=== PATIENT | male | born 1970 | race Caucasian/White ===

== ENCOUNTER → 2019-05-19 | Outpatient (CLI) | payer BC, SELFPAY ==
[2019-05-19 12:34] LABS: Absolute Lymphocyte Count 1.86 X10^3/uL (0.83-4.51); Absolute Neutrophil Count 3.5 X10^3/uL (2.0-7.7); Basophil# 0.05 X10^3/uL; Basophil% 0.8 % (0-1); Eosinophil# 0.11 X10^3/uL; Eosinophils% 1.8 % (0-5); Hematocrit 44.1 % (40-54); Hemoglobin 14.5 g/dL (13.0-16.5); Lymphocyte # 1.86 X10^3/ul (4.0); Lymphocyte % 29.9 % (19-41); Mean Corp Hgb Conc 32.9 g/dL (32-36); Mean Corpuscular Volume 94.2 fL (80-94); Mean Platelet Vol. 10.3 fl (6.2-12.0); Monocyte# 0.64 X10^3/uL; Monocyte% 10.3 % (0-10); NRBC Flagged by Analyzer 0 % (0-5); Neutrophil # 3.54 X10^3/uL (2.7-7.7); Neutrophil % 56.9 % (47-70); Platelet Count 301 K/mm3 (150-450); RBC Distribution Width CV 14.1 % (11.6-14.6); RBC Distribution Width SD 49.1 fl (35.1-43.9); Red Blood Count 4.68 M/mm3 (4.6-6.2); White Blood Count 6.2 K/mm3 (4.4-11.0)
[2019-05-19 12:36] LABS: Erythrocyte Sedimentation Rate 5 mm/hr (0-20)
[2019-05-19 13:01] LABS: AST(SGOT) 24 U/L (15-37); Alanine Aminotransfer ALT/SGPT 47 U/L (16-61); Alkaline Phosphatase 93 U/L (45-117); Anion Gap 4 (5-15); BUN 24 mg/dL (7-18); BUN/Creat Ratio 25.7 RATIO (10-20); CRP 3.39 mg/L (0.0-3.0); Calcium,Total 9.1 mg/dL (8.5-10.1); Chloride 107 mmol/L (98-107); Cholesterol 253 mg/dL (200); Creatinine, Serum 0.93 mg/dL (0.70-1.30); EST Glomerular Filtration Rate 91 mL/min (>60); Est Glom Filt Rate - Afr Amer 110 mL/min (>60); Globulin 4.2 g/dL (2.2-4.2); Glucose 93 mg/dL (74-106); High Density Lipoprotein 39 mg/dL; Potassium 4.2 mmol/L (3.5-5.1); Protein, Total 8.2 g/dL (6.4-8.2); Rheumatoid Factor < 10.0 IU/mL (<15); Sodium Level 138 mmol/L (136-145); Thyroid Stim Hormone (TSH) 2.99 uIU/mL (0.358-3.74); Triglycerides 196 mg/dL; Very Low Density Lipoprotein 39 mg/dL (5-40)
[2019-05-19 13:02] LABS: Vitamin D,25 Hydroxy 14.6 ng/mL (29.95-100.01)
[2019-05-20 14:01] LABS: ANTINUCLEAR ANTIBODIES DIRECT Negative (Negative)
== END | disposition home or self-care (01) ==
LOC: BFHLAB 09:37
PROVIDERS: PCP Family Medicine; Visit Provider Family Medicine
DX: M06.4 Inflammatory polyarthropathy (principal); R53.83 Other fatigue; Z13.220 Encounter for screening for lipoid disorders; Z82.49 Family history of ischemic heart disease and other diseases of the circulatory system
CPT/HCPCS: 36415; 80053; 80061; 82306; 84443; 85025; 85652; 86038; 86140; 86225; 86235; 86431

== ENCOUNTER → 2023-01-10 | Outpatient (CLI) | payer SELFPAY ==
[2023-01-10 12:14] LABS: Absolute Lymphocyte Count 2.27 X10^3/uL (0.83-4.51); Absolute Neutrophil Count 2.8 X10^3/uL (2.0-7.7); Basophil# 0.04 X10^3/uL; Basophil% 0.7 % (0-1); Eosinophil# 0.09 X10^3/uL; Eosinophils% 1.6 % (0-5); Hematocrit 44.6 % (40-54); Hemoglobin 14.8 g/dL (13.0-16.5); Lymphocyte # 2.27 X10^3/ul (0.83-4.51); Lymphocyte % 40.5 % (19-41); Mean Corp Hgb Conc 33.2 g/dL (32-36); Mean Corpuscular Volume 96.3 fL (80-94); Monocyte# 0.43 X10^3/uL; Monocyte% 7.7 % (0-10); NRBC Flagged by Analyzer 0 % (0-5); Neutrophil # 2.76 X10^3/uL (2.7-7.7); Neutrophil % 49.3 % (47-70); Platelet Count 258 K/mm3 (150-450); RBC Distribution Width CV 13.9 % (11.6-14.6); RBC Distribution Width SD 49.1 fl (35.1-43.9); Red Blood Count 4.63 M/mm3 (4.6-6.2); White Blood Count 5.6 K/mm3 (4.4-11.0)
[2023-01-10 12:39] LABS: Vitamin D,25 Hydroxy 28.6 ng/mL
[2023-01-10 12:53] LABS: ALB/GLOB Ratio 0.9 RATIO (0.9-2.4); AST(SGOT) 22 U/L (15-37); Alanine Aminotransfer ALT/SGPT 43 U/L (16-61); Albumin, Serum 3.7 g/dL (3.2-5.0); Alkaline Phosphatase 94 U/L (45-117); Anion Gap 6 (5-15); BUN 21 mg/dL (7-18); BUN/Creat Ratio 22.4 RATIO (10-20); Calcium,Total 8.8 mg/dL (8.5-10.1); Chloride 108 mmol/L (98-107); Cholesterol 248 mg/dL (200); Creatinine, Serum 0.94 mg/dL (0.70-1.30); EST Glomerular Filtration Rate 89 mL/min (>60); Est Glom Filt Rate - Afr Amer 108 mL/min (>60); Globulin 3.9 g/dL (2.2-4.2); Glucose 103 mg/dL (74-106); High Density Lipoprotein 38 mg/dL; Potassium 3.9 mmol/L (3.5-5.1); Protein, Total 7.6 g/dL (6.4-8.2); Sodium Level 139 mmol/L (136-145); Triglycerides 203 mg/dL; Very Low Density Lipoprotein 41 mg/dL (5-40)
== END | disposition home or self-care (01) ==
LOC: BFHLAB 08:13
PROVIDERS: PCP Nurse Practitioner Family; Referring Provider Nurse Practitioner Family; Visit Provider Nurse Practitioner Family
DX: Z00.01 Encounter for general adult medical examination with abnormal findings (principal); M06.4 Inflammatory polyarthropathy; E55.9 Vitamin D deficiency, unspecified
CPT/HCPCS: 36415; 80053; 80061; 82306; 84153; 85025; G0103

== ENCOUNTER 2024-12-04 08:28 | Day surgery (SDC) | payer SELFPAY ==
[2024-12-04] VITALS (8 sets, daily range): BP systolic 98–118; BP diastolic 73–91; PULSE 74–88; RESP 16–20; TEMP 35.8–36.9; O2SAT 98–100; BMI 25.1
[2024-12-04] MEDS: Lactated Ringers 1,000 ML 15 ML IV (08:53)
--- OUTSIDE RECORDS SUMMARY | 2024-12-04 09:03 | XMS RPT_ITS | CCD ---
Author Organization [facility] Care Team Providers Care Information Clerk Name Role Phone Tony Mayorga Attending Unavailable Malena Yu Referring Unavailable Malena Yu Primary Care Unavailable Malena Yu Primary Care Unavailable Rogelio Boothe Attending Unavailable Malena Yu Referring Unavailable Medications Current Medications Medication Drug Class(es) Dates Sig (Normalized) Sig (Original) azithromycin 250 mg oral tablet (1 source) Macrolide Antimicrobial Start: 04-20-2021 Azithromycin Active 250 MG PO daily April 20, 2021 1:00am 2 tablets today, then 1 tablet daily on days 2 through 11 predniSONE 10 mg oral tablet (1 source) Start: 04-20-2021 take 10 mg by mouth once daily Prednisone Active 10 MG PO DAILY April 20, 2021 1:00am Problems Problem Classification Problem Date Documented Da te Episodic/Chronic Other upper respiratory disease (1 source) Respiratory tract congestion; Translations: [Nasal congestion] 04-20-2021 Episodic Other upper respiratory infections (1 source) Acute maxillary sinusitis; Translations: [Acute maxillary sinusitis, unspecified] 04-20-2021 Episodic Unclassified (1 source) Cough, unspecified; Translations: [Cough, unspecified] Onset: 05-21-2024 Results Test Name Value Interpretation Reference Range Facility Urgent Care Visit Reporton 0 05-21-2024 Urgent Care Visit Report [facility] [address], [address] [place] [address] OFFICE VISIT Date of Service: 05/21/24 MR#: [id number] Acct: [id number] Name: DENA PIZARRO Rep #: [id number] : 1970 Provider: JONATHAN Alcazar Age/Sex: 54/M Location: [facility] Status: Signed Intake Vital Signs 04/20/21 14:11 05/21/24 11:57 Height 5 ft 8 in 5 ft 8 in Weight: 170 lb BMI 25.8 BP 124/62 H Blood Pressure Location Lt brachial Position Sitting Respiration 16 Pulse 86 Pulse Source NIBP Temp 98.9 F Temp Source Oral Pulse Oximetry (%) 97 Oxygen Delivery Method room air Intake Visit Reasons: Cough Chief Complaint: cough, [place], BA, ST, congest [employer] Trim Required: No Is patient in pain?: No Allergies No Known Allergies Allergy (Verified 05/21/24 11:58) Medications ???Medication ???Instructions ???Recorded ???Confirmed ???Type oseltamivir 75 mg capsule (Tamiflu) 75 mg PO Q12H 5 days #10 caps 0 05/21/24 05/21/24 Rx Have you fallen in the past year?: No Nurse's Note: cough, ST[place]FORD, BA, ST, congest x 48 hours. denies fever PFSH Medical History (Updated 05/21/24 @ 13:47 by Tony CASTILLO, PA) Acute maxillary sinusitis, unspecified HPI HPI Chief Complaint: cough, [place], BA, ST, congest Details: DENA PIZARRO, is a 54 M who presents to the office today for complaint of cough, headache, body aches and sore throat as well as congestion for the past 48 hours. Patient denies hemoptysis, shortness of breath or difficulty breathing. No loss of taste or smell. No nausea, vomiting or diarrhea. No other associated symptoms or alleviating/aggrava ting factors. ROS Const Constitutional: No other (as above) Exam Const General: cooperative and well developed HENWI Head: normal to inspection and atraumatic Ears: hearing grossly normal bilaterally Nose: nasal discharge clear Face and sinus: normal facial exam Mouth: oral mucosae normal Throat: abnormal tonsil bilaterally hypertrophy 1+ Resp Effort Inspection: normal respiratory effort and no audible wheezes Auscultation: Bilateral: Clear to Auscultation Cardio Palpation: normal PMI Rate: regular rate Rhythm: regular rhythm Neuro General: patient alert and CN's II-XI intact bilaterally Psych Appearance: grossly normal Mental Status: mental status grossly normal Results POC FLU A B Office Flu A B Pos FLU A Neg FLU B Last Edit by Velia Hare on 05/21/24 12:08 Coding Level of Care Code Off vis,est,level 3 Diagnoses Influenza due to influenza virus, type A, human J10.1 Assessment and Plan Assessment and Plan (1) Influenza due to influenza virus, type A, human: Status: Acute Orders: Orders POC FLU A B Today R05.9 - Cough, unspecified Medications: New oseltamivir (Tamiflu) 75 mg PO Q12H 10 caps 0RF 5 days Plan Tamiflu as prescribed today. Encouraged to get plenty of rest, drink lots of clear liquids, and use Tylenol or Ibuprofen (unless contraindicated) for fever and comfort. Patient also educated on other symptomatic management techniques. To be seen in 7-10 days if no improvement; sooner if worsening of symptoms. Patient advised of potential red flags and when appropriate to report to the ED. Patient verbalized understanding and agreement with all the above. Clinical Quality Measures Falls Risk Screening/Assistive Devices Have you fallen in the past year?: No 05/21/24 1348 Date Tony Liu Signature: Date (if applicable) CC: Normal [facility] Absolute lymphocyte countOrd ered By: Malena Yu on 01-10-2023 Lymphocytes Auto (Unsp spec) [#/Vol] 2.27 10*3/uL 0.83-4.51 [facility] Basophil percentageOrdered B y: Malena Yu on 01-10-2023 Basophils/100 WBC (Bld) 0.7 % 0-1 [facility] Bilirubin [Mass/Vol] 0.30 mg/dL 0.20-1.00 [facility] Comment on above: For patients on eltr ombopag therapy, use of Dimension Clay TBIL is not recommended. Chloride [Moles/Vol] 108 mmol/L 98-107 [facility] Cholesterol [Mass/Vol] 248 mg/dL <[address] [facility] Comment on above: <200 mg/dL Desirable 200-240 mg/dL Borderline >240 mg/dL High Risk Eosinophils/100 WBC (Bld) 1.6 % 0-5 [facility] Glucose [Mass/Vol] 103 mg/dL 74-106 [facility] Comment on above: Fasting Glucose resu lt from 100 to 125 mg/dL suggests IMPAIRED HOMEOSTASIS per A.D.A. criteria. Neutrophils (Bld) [#/Vol] 2.8 10*3/uL 2.0-7.7 [facility] Neutrophils/100 WBC (Bld) 49.3 % 47-70 [facility] Potassium [Moles/Vol] 3.9 mmol/L 3.5-5.1 [facility] Protein [Mass/Vol] 7.6 g/dL 6.4-8.2 [facility] Sodium [Moles/Vol] 139 mmol/L 136-145 [facility] Triglyceride [Mass/Vol] 203 mg/dL <199 [facility] Comment on above: The drugs N-Acetylcy steine and Metamizole may falsely depress this assay.Serum Triglycerides Reference Interval Normal <150 mg/dL Borderline high 150 - 199 mg/dL High 200 - 499 mg/dL Very High > or = 500 mg/dL WBC (Bld) [#/Vol] 5.6 10*3/uL 4.4-11.0 [facility] Blood erythrocytes count (nu mber/volume)Ordered By: Malena Yu on 01-10-2023 RBC (Bld) [#/Vol] 4.63 10*6/uL 4.6-6.2 [facility] Blood hemoglobin measurement (mass/volume)Ordered By: Malena Yu on 01-10-2023 Hemoglobin (Bld) [Mass/Vol] 14.8 g/dL 13.0-16.5 [facility] Blood lymphocytes/100 leukoc ytesOrdered By: Malena Yu on 01-10-2023 Lymphocytes/100 WBC (Bld) 40.5 % 19-41 [facility] Blood monocytes/100 leukocyt esOrdered By: Malena Yu on 01-10-2023 Monocytes/100 WBC (Bld) 7.7 % 0-10 [facility] Blood platelet mean volumeOr dered By: Malena Yu on 01-10-2023 Platelet mean volume (Bld) [Entitic vol] 11.0 fL 6.2-12.0 [facility] Determination of erythrocyte mean corpuscular volume (MCV)Ordered By: Malena Yu on 01-10-2023 MCV (RBC) [Entitic vol] 96.3 fL 80-94 [facility] Hematocrit Auto (Bld) [Volum e fraction]Ordered By: Malenakatt Yu on 01-10-2023 Hematocrit (Bld) [Volume fraction] 44.6 % 40-54 [facility] Laboratory - Chemistry and C hemistry - challengeOrdered By: [place] Gigi on 01-10-2023 ALP [Catalytic activity/Vol] 94 U/L 45-117 [facility] ALT [Catalytic activity/Vol] 43 U/L 16-61 [facility] CO2 [Moles/Vol] 25.0 mmol/L 21.0-32.0 [facility] Globulin (S) [Mass/Vol] 3.9 g/dL 2.2-4.2 [facility] Urea nitrogen/Creatinine [Mass ratio] 22.4 mg/mg 10-20 [facility] - Hematology and Cell countsOrdered By: Malenakatt Yu on 01-10-2023 Erythrocyte distribution width (RBC) [Entitic vol] 49.1 fL 35.1-43.9 [facility] Erythrocyte distribution width (RBC) [Ratio] 13.9 % 11.6-14.6 [facility] Immature granulocytes/100 WBC (Bld) 0.200 % 0.0-0.9 [facility] Comment on above: IG% - Immature Granu locytes (promyelocytes, myelocytes and metamyelocytes) > 1% indicates that a LEFT SHIFT is Present. MCH (RBC) [Entitic mass] 32.0 pg 27.0-32.0 [facility] Nucleated RBC/100 WBC (Bld) [Ratio] 0 % 0-5 [facility] MCHC Auto (RBC) [Mass/Vol]Or dered By: Malena Yu on 01-10-2023 MCHC (RBC) [Mass/Vol] 33.2 g/dL 32-36 [facility] No Panel InformationOrdered By: Malena Yu on 01-10-2023 Estimated GFR (MDRD) Amer 108 mL/min >60 [facility] Comment on above: GFR Calc Estimated GFR (MDRD) Non-Af Amer 89 mL/min >60 [facility] Comment on above: Non- GFR Calc Prostate Specific Antigen Screen 0.60 ng/mL 0.00-4.00 [facility] Comment on above: This test was perfor med using the TPSA assay method for theCareerise chemistry system. Values obtained with differentassay methods cannot be used interchangably.When changing PSA assays in the course of monitoring apatient, additional sequential testing should be carriedout to confirm baseline values. Vitamin D 25-Hydroxy 28.6 ng/mL [facility] Comment on above: Vitamin D 25(OH) Sta tus Range Deficiency <20 ng/mL (50nmol/L) Insufficiency 20 - 30 ng/mL (50 - 75 nmol/L) Sufficiency 30 - 100 ng/mL (75 - 250 nmol/L) Toxicity >100 ng/mL (>250 nmol/L) Platelets bldOrdered By: Dai Yu on 01-10-2023 Platelets (Bld) [#/Vol] 258 10*3/uL 150-450 [facility] Serum or plasma albumin haja urement (mass/volume)Ordered By: Malena Yu on 01-10-2023 Albumin [Mass/Vol] 3.7 g/dL 3.2-5.0 [facility] Serum or plasma albumin/glob ulin mass ratioOrdered By: aMlena Yu on 01-10-2023 Albumin/Globulin [Mass ratio] 0.9 {ratio} 0.9-2.4 [facility] Serum or plasma calcium haja urement (mass/volume)Ordered By: Malena Yu on 01-10-2023 Calcium [Mass/Vol] 8.8 mg/dL 8.5-10.1 [facility] Serum or plasma cholesterol in HDL measurement (mass/volume)Ordered By: Malena Yu on 01-10-2023 Cholesterol in HDL [Mass/Vol] 38 mg/dL >40 [facility] Comment on above: The drugs N-Acetylcy steine and Metamizole may falsely depress this assay. Reference Range HDL <40 mg/dL Low HDL Cholesterol HDL >or= 60 mg/dL High HDL Cholesterol Serum or plasma cholesterol in VLDL measurement (mass/volume)Ordered By: Malena Yu on 01-10-2023 Cholesterol in VLDL [Mass/Vol] 41 mg/dL 5-40 [facility] Serum or plasma creatinine m easurement (mass/volume)Ordered By: Malena Yu on 01-10-2023 Creatinine [Mass/Vol] 0.94 mg/dL 0.70-1.30 [facility] Comment on above: The validity of the calculated GFR & GFRAA in patients over 70 years has not been determined. Clinical correlation is essential. Serum or plasma low density lipoprotein (LDL) cholesterol measurement (mass/volume)Ordered By: Malena Yu on 01-10-2023 Cholesterol in LDL [Mass/Vol] 169 mg/dL 0-130 [facility] Serum or plasma urea nitroge n measurement (mass/volume)Ordered By: Malena Yu on 01-10-2023 Urea nitrogen [Mass/Vol] 21 mg/dL 7-18 [facility] Thin prep Papanicolaou smear with manual screeningOrdered By: Malenakatt Yu on 01-10-2023 Thin prep Papanicolaou smear with manual screening 22 U/L 15-37 [facility] Thin prep Papanicolaou smear with manual screening 6 5-15 [facility] Encounters Encounter Date Encounter Type Care Provider Facility Start: 12-04-2024 ambulatory Malena Yu Facility:[facility] Start: 05-21-2024 End: 05-21-2024 ambulatory Tony CASTILLO Facility:[facility] Start: 01-10-2023 End: 01-10-2023 ambulatory [facility] Work Phone: Start: 01-10-2023 End: 01-10-2023 Patient encounter procedure [facility] Payers Date Payer Category Payer Self-pay [id number] Unknown ANTHEM [id number] Unknown [id number] Unknown [id number] Social History Date Type Detail Facility [facility] if ever [facility] Work Phone: Start: 1970 Sex Assigned At Male [facility] Evaluation note Note Date & Type Note Facility Evaluation note No assessment information availa ble [facility] Work Phone: Summary Purpose Family History No Family History Records Found Advance Directives No Advanced Directives Records Found Additional Source Comments Care Teams (unrecognized sec tion and content) Team Status: Active Member Role Status Dates CLARITZA Zee Primary Care Provider Active Team Status: Inactive Member Role Status Dates CLARITZA Zee Primary Care Provide r, Attending Provider, Referring Provider Active Goals (unrecognized section and content) Goals may be documented in a n alternate section (unrecognized sect ion and content) No Status Records Found INFORMATION SOURCE (unrecogn ized section and content) DATE CREATED AUTHOR 12/03/2024 [facility] FOR RECORDS PERTAINING TO PATIENTS WHO ARE OR HAVE BEEN ENROLLED IN A CHEMICAL DEPENDENCY/SUBSTANCEABUSE PROGRAM, SOME INFORMATION MAY BE OMITTED. This clinical summary was aggregated from multiple sources. Caution should be exercised in using it in the provision of clinical care. This summary normalizes information from multiple sources, and as a consequence, information in this document may materially change the coding, format and clinical context of patient data. In addition, data may be omitted in some cases. CLINICAL DECISIONS SHOULD BE BASED ON THE PRIMARY CLINICAL RECORDS. [employer] [facility]. provides no warranty or guarantee of the accuracy or completeness of information in this document.
--- NOTE | 2024-12-04 09:08 | PRE.ANES_ITS ---
ASA Classification* ASA Classification ASA Classification: 2 Assessment & Plan Anesthesia* Anesthesia Assessment Anesthesia Assessment: Discussed sedation and/or anesthesia options, risks, benefits, and alternatives with patient/parents/legal guardian/POA. Questions invited. The patient/parents/legal guardian/POA seems to understand and agrees to proceed with anesthesia plan. Reviewed the physical assessment, medical history, allergy history and patient home medications list prior to surgery/procedure/anesthetic and documented any changes. Performed airway and anesthesia risk assessments. Anesthesia Type Anesthesia Type: MAC History Source History Obtained from:: Patient and Chart Anesthesia Focused Assessment* Temperature: 97.3 F Pulse Rate: 80 Blood Pressure: 118/91 Respiratory Rate: 18 Pulse Ox: 100 Oxygen Delivery Method: Room Air Airway Assessment Mouth opens: >3 cm Mallampati Score: IV Teeth Condition: Caps/Crowns (Patient has a couple caps. They are tight.) Neck Range of motion (ROM): Limited ROM (Slight Decrease) Labs Anesthesia Preop lab: CBC WBC 5.6 K/mm3 (4.4-11.0) 01/10/23 08:16 01/10/23 RBC 4.63 M/mm3 (4.6-6.2) 01/10/23 08:16 01/10/23 Hgb 14.8 g/dL (13.0-16.5) 01/10/23 08:16 01/10/23 Hct 44.6 % (40-54) 01/10/23 08:16 01/10/23 Plt Count 258 K/mm3 (150-450) 01/10/23 08:16 01/10/23 CHEMISTRY Potassium 3.9 mmol/L (3.5-5.1) 01/10/23 08:16 01/10/23 Sodium 139 mmol/L (136-145) 01/10/23 08:16 01/10/23 BUN 21 mg/dL (7-18) H 01/10/23 08:16 01/10/23 Creatinine 0.94 mg/dL (0.70-1.30) 01/10/23 08:16 01/10/23 Glucose 103 mg/dL (74-106) 01/10/23 08:16 01/10/23 TSH 2.99 uIU/mL (0.358-3.74) 05/19/19 09:38 COAG Pre-Assessment Diagnosis/Proposed Procedure Planned Operative Procedure(s): COLONOSCOPY Anesthesia History 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 When Was Last Pacemaker Check QUESTION #4 FULL TEXT: You/Your Family Experience fever (hyperthermia) with Anesthesia Last Oral Intake Last Oral intake: Last Oral Intake NPO since 21:00 12/04/24 08:42 Meds taken in AM with sips of No 12/04/24 08:42 water? 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 Female No 12/02/24 09:36 HX of Motion Sickness No 12/02/24 09:36 HX of N/V After Surgery No 12/02/24 09:36 Non-Smoker Yes 12/02/24 09:36 Duration of Surgery greater No 12/02/24 09:36 than 60 minutes Number of Risk Factors 1 12/02/24 09:36 PONV Score Low Risk 12/02/24 09:36 Height & Weight Height & Weight: Anesthesia: Height & Weight Height 5 ft 8 in 12/04/24 08:42 Weight: 75 kg 12/04/24 08:42 Body Mass Index (BMI) 25.1 12/04/24 08:42 Respiratory Assessment Respiratory Assessment - waiter/waitress economy class: Respiratory Tract Infection Hx - waiter/waitress economy class Hx Respiratory Tract Infection No 12/02/24 09:36 STOP Sleep Apnea STOP Sleep Apnea - waiter/waitress economy class: STOP Sleep Apnea - waiter/waitress economy class Hx Hypertension No 12/02/24 09:36 Hx Sleep Apnea No 12/02/24 09:36 CPAP BIPAP Do you snore loudly (louder No 12/02/24 09:36 than talking or can be heard Do you often feel tired/ No 12/02/24 09:36 fatigued/ sleepy during daytime? Has anyone observed you stop No 12/02/24 09:36 breathing during sleep? STOP Results Negative 12/02/24 09:36 QUESTION #5 FULL TEXT : Do you snore loudly (louder than talking or can be heard through closed doors)? 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 Specify any problems Hx of Preganancy in last 3 N/A 12/02/24 09:36 Months Nurse Filling Out Transfusion [email or web address] 12/02/24 09:36 & Questions: Date: 12/02/24 12/02/24 09:36 Time: 09:37 12/02/24 09:36 Patient unable to answer at this time (ie. confused, unrespo /Reproduction History /Reproductive History - waiter/waitress economy class: /Reproductive Hx- waiter/waitress economy class Hx Now Gestational Age (in weeks): EDC: Hx Hx Para Hx Section SAB Active Medications Active Medications: Current Medications Generic Name Dose Route Start Last Admin Trade Name Freq PRN Reason Stop Dose Admin Lactated Ringer's 1,000 mls @ 15 mls/hr 12/04/24 08:45 12/04/24 08:53 IV 15 mls/hr .Q48H ABIGAIL Administration PFSH Medical History Loss of hearing Wears hearing aid Wears glasses Non-smoker Acute maxillary sinusitis, unspecified Home Medications ?Medication ?Instructions ?Recorded ?Last Taken ?Type NK 12/02/24 Unknown History Allergy/AdvReac Type Severity Reaction Status Date / Time No Known Allergies Allergy Verified 12/04/24 08:41 Surgical History H/O inguinal hernia repair Social History Smoking Status: Never smoker Review of Systems (Anesthesia) ROS Narrative System reviewed and no additional complaints, except as documented.
--- NOTE | 2024-12-04 09:11 | H&P.OPEN ---
HPI - General HPI Narrative DENA PIZARRO, is a 54 M who presents for screening colonoscopy. He has never had a colonoscopy in the past. He denies abdominal pain or blood in the stool. No family history of colon cancer. [facility] Medical History (Updated 12/04/24 @ 09:[address] Rogelio Boothe MD) Loss of hearing Wears hearing aid Wears glasses Non-smoker Acute maxillary sinusitis, unspecified Home Medications ?Medication ?Instructions ?Recorded ?Last Taken ?Type NK 12/02/24 Unknown History Allergy/AdvReac Type Severity Reaction Status Date / Time No Known Allergies Allergy Verified 12/04/24 08:41 Surgical History (Updated 12/02/24 @ 09:40 by Emigdio Pérez) H/O inguinal hernia repair Social History Smoking Status: Never smoker Past Medical/Surgical History Planned Operation Planned Operative Procedure(s): COLONOSCOPY Previous Hospitalizations/Surgeries HX Hospitalizations: No Any Problems With Anesthesia: No You/Your Family Experience Fever (Hyperthermia) With Anes: No Cholinesterase deficiency: No Cardiovascular Hx Hypertension: No Respiratory Hx Sleep Apnea: No Hx Respiratory Tract Infection/Cold (presently): No Do You Snore Loudly (louder than talking or can be heard): No Do You Often Feel Tired/ Fatigued/ Sleepy Dring Daytime?: No Has Anyone Observed You Stop Breathing During Sleep?: No Result (for STOP score): Negative Smoking Status: Never smoker Neurological Does patient have nerve stimulator: No Miscellaneous Recent Exposure to Contagious Disease: No Allergies No Known Allergies Allergy (Verified 12/04/24 08:41) Discharge After D/C, Where Do you Plan to Go: Return Home Vital Signs Vital Signs Vital Signs: 12/04/24 08:42 12/04/24 08:42 Temperature 97.3 F L Temperature Source Temporal Pulse Rate 80 Respiratory Rate 18 Respiratory Pattern Normal Blood Pressure 118/91 H Blood Pressure Mean 100 Blood Pressure Source Monitor Blood Pressure Position Sitting Blood Pressure Location Left Arm Pulse Ox 100 Oxygen Delivery Method Room Air Weight Weight: 165 lb 5.547 oz Body Mass Index (BMI) 25.1 Physical Exam Const alert and oriented x3 HEENT normocephalic Eyes PERRL Resp normal respiratory effort and normal air movement Cardio regular rate and regular rhythm GI soft to palpation, non-tender and non-distended Extremity normal to inspection Assessment & Plan Assessment/Plan (1) Screen for colon cancer: PLAN: I explained endoscopy in detail to the patient. I explained the risks including but not limited to stroke or heart attack with anesthesia, perforation of the GI tract, bleeding, infection. I explained that any of these could necessitate further emergency surgery. The patient understands and all questions were answered sufficiently. The patient wishes to proceed with procedure. Rogelio Boothe MD Pager: [facility] [address] [place] [address] [address] [place] [address] Office: Surgery Risks - Colonoscopy Risks Include but are not Limited To: Risks include but are not limited to: Bleeding, perforation requiring further surgery, inability to complete colonoscopy requiring barium enema.
[2024-12-04] MEDS: Lactated Ringers 500 ML IV (09:14)
--- NOTE | 2024-12-04 09:38 | OP.PROVAT_ITS ---
12/04/2024 Violet Zee Re : Colonoscopy procedure for Zeeshan Molina Dear Gigi This procedure was performed on Wednesday, December 04, 2024. My impressions and recommendations are as follows: Impressions : - The entire examined colon is normal on direct and retroflexion views. - No specimens collected. Recommendations : - Discharge patient to home. - Resume previous diet. - Continue present medications. - Repeat colonoscopy in 10 years for screening purposes. My findings are described in the full procedure note, which is enclosed. If I can be of further assistance, please feel free to contact me at Doctor phone number(s): , Work: . Sincerely, Rogelio Boothe MD 12/04/2024 9:37:14 AM This report has been signed electronically.
--- NOTE | 2024-12-04 09:38 | OP.COLON_ITS ---
Patient Name: Zeeshan Molina Procedure Date: 12/04/2024 9:00 AM Date of : 1970 Age: 54 Procedure: Colonoscopy Indications: Screening for colorectal malignant neoplasm Providers: Rogelio Boothe MD Referring MD: Violet Zee Medicines: Propofol per Anesthesia Patient Profile: This is a 54 year old male. Refer to note in patient chart for documentation of history and physical. Last Colonoscopy: none. The patient's first colonoscopy is today. Complications: No immediate complications. Procedure: Pre-Anesthesia Assessment: - Prior to the procedure, a History and Physical was performed, and patient medications and allergies were reviewed. The patient's tolerance of previous anesthesia was also reviewed. The risks and benefits of the procedure and the sedation options and risks were discussed with the patient. All questions were answered, and informed consent was obtained. Prior Anticoagulants: The patient has taken no anticoagulant or antiplatelet agents. After reviewing the risks and benefits, the patient was deemed in satisfactory condition to undergo the procedure. After I obtained informed consent, the scope was passed under direct vision. Throughout the procedure, the patient's blood pressure, pulse, and oxygen saturations were monitored continuously. The adult colonoscope was introduced through the anus and advanced to the cecum, identified by appendiceal orifice and ileocecal valve. The colonoscopy was performed without difficulty. The patient tolerated the procedure well. The quality of the bowel preparation was good. The ileocecal valve, appendiceal orifice, and rectum were photographed. Scope In: 9:23:40 AM Scope Withdrawal Time 0 hours 6 minutes 9 seconds Scope Out: 9:33:55 AM Total Procedure Duration Time 0 hours 10 minutes 15 seconds Findings: The entire examined colon appeared normal on direct and retroflexion views. Impression: - The entire examined colon is normal on direct and retroflexion views. - No specimens collected. Recommendation: - Discharge patient to home. - Resume previous diet. - Continue present medications. - Repeat colonoscopy in 10 years for screening purposes. Procedure Code(s): --- Professional --- 24366, Colonoscopy, flexible; diagnostic, including collection of specimen(s) by brushing or washing, when performed (separate procedure) Diagnosis Code(s): --- Professional --- Z12.11, Encounter for screening for malignant neoplasm of colon CPT copyright 2021 [employer]. All rights reserved. The codes documented in this report are preliminary and upon canvassing manager review may be revised to meet current compliance requirements. Rogelio Boothe MD 12/04/2024 9:37:14 AM This report has been signed electronically. Number of Addenda: 0 Note Initiated On: 12/04/2024 9:00 AM
--- NOTE | 2024-12-04 09:42 | PCM.POST.ANE ---
Anesthesia: Postop Eval I Current Vital Signs Temperature: 98.4 F Pulse Rate: 88 Blood Pressure: 99/73 Respiratory Rate: 20 Pulse Ox: 98 Oxygen Delivery Method: Room Air Assessment Airway patent: Yes Spontaneous unlabored respirations: Yes Mental status: Awake nausea: No Vomiting: No Anesthesia Complication: No Fluid Hydration Crystalloid volume administer (ml): 500 Total IV fluid infused: 500 Progress Note Anesthesia document: Postop Eval 1 completed: Yes
--- NOTE | 2024-12-04 14:43 | POSTOPAN2_ITS ---
Anesthesia Postop Eval I Sum Postop Eval Completion status Anesthesia document: Postop Eval 1 completed: Yes Anesthesia Postop Eval I Summary Anesthesia Postop Eval I Summary: Anesthesia Postop Eval I: Assessment Summary Airway patent Yes 12/04/24 09:42 FIXED WING [email or web address] Spontaneous unlabored Yes 12/04/24 09:42 FIXED WING PILOT.JDEF respirations Mental status Awake 12/04/24 09:42 FIXED WING PILOT.JDEF nausea No 12/04/24 09:42 FIXED WING PILOT.JDEF Vomiting No 12/04/24 09:42 FIXED WING PILOT.JDEF Anesthesia Postop Eval I: Fluid Summary Crystalloid volume administer 500 12/04/24 09:42 FIXED WING PILOT.JDEF (ml) Colloids volume administered ( ml) Blood Product volume administered (ml) Total IV fluid infused 500 12/04/24 09:42 FIXED WING PILOT.JDEF Anesthesia Postop Eval I: Summary Notes Anesthesia Complication No 12/04/24 09:42 FIXED WING PILOT.JDEF Anesthesia Complication Comment: Post-operative progress note Anesthesia: Postop Eval II Evaluation Mental status: Awake and Calm Pain Level: 0 nausea: No Vomiting: No Complications Anesthesia Complication: No
--- NOTE | 2024-12-04 14:43 | PCM.POSTANE2 ---
Anesthesia Postop Eval I Sum Postop Eval Completion status Anesthesia document: Postop Eval 1 completed: Yes Anesthesia Postop Eval I Summary Anesthesia Postop Eval I Summary: Anesthesia Postop Eval I: Assessment Summary Airway patent Yes 12/04/24 09:42 CLE[employer]ER [employer]PET AND UPHOLSTERY.[email or web address] Spontaneous unlabored Yes 12/04/24 09:42 CLE[employer]ER [employer] AND UPHOLSTERY.JDEF respirations Mental status Awake 12/04/24 09:42 CLE[employer]ER [employer] AND UPHOLSTERY.JDEF nausea No 12/04/24 09:42 CLEANER [employer]PET AND UPHOLSTERY.JDEF Vomiting No 12/04/24 09:42 CLEANER [employer] AND UPHOLSTERY.JDEF Anesthesia Postop Eval I: Fluid Summary Crystalloid volume administer 500 12/04/24 09:42 CLEANER [employer] AND UPHOLSTERY.JDEF (ml) Colloids volume administered ( ml) Blood Product volume administered (ml) Total IV fluid infused 500 12/04/24 09:42 CLEANER [employer]PET AND UPHOLSTERY.JDEF Anesthesia Postop Eval I: Summary Notes Anesthesia Complication No 12/04/24 09:42 CLEANER [employer]PET AND [email or web address].JDEF Anesthesia Complication Comment: Post-operative progress note Anesthesia: Postop Eval II Evaluation Mental status: Awake and Calm Pain Level: 0 nausea: No Vomiting: No Complications Anesthesia Complication: No
== END 2024-12-04 10:07 | disposition home or self-care (01) ==
PROVIDERS: PCP Nurse Practitioner Family; Referring Provider Nurse Practitioner Family; Visit Provider Surgery
PROC: 0DJD8ZZ Inspection of Lower Intestinal Tract, Via Natural or Artificial Opening Endoscopic (ICD-10-PCS; CPT 45378; principal; 2024-12-04 09:10)
DX: Z12.11 Encounter for screening for malignant neoplasm of colon (principal)
CPT/HCPCS: 45378; J2405